=== PATIENT | female | born 1960 | race Caucasian/White ===

== ENCOUNTER → 2017-12-19 | Outpatient (CLI) | payer BC ==
[~2017-12-19] MED LIST: CALC600T9 PO; CETI10TA84 PO; LISI-461 PO; PRLSR20 PO
--- NOTE | 2017-12-19 09:15 | DIAGNOSTIC IMAGING REPORT ---
L ELBOW MIN 3 VIEWS ROUTINE CLINICAL HISTORY: ACUTE L MEDIAL EPECONDYLE PAIN/EPICONDYLITIS COMPARISON: None. DISCUSSION: The bones and joint spaces appear intact. There is no evidence of fracture, dislocation or bony disease. There is no evidence for soft tissue swelling. IMPRESSION: Negative study. The above report was generated using voice recognition software. It may contain grammatical, syntax or spelling errors. Electronically signed by: Anand Armstrong M.D. 12/19/2017 9:14 AM Dictated Date/Time: 12/19/2017 9:13 AM
[2017-12-19 09:33] LABS: BASO % 0.3 %; BASO ABS # 0.02 K/uL (0-0.2); EOS % 4.8 %; EOS ABS # 0.32 K/uL (0-0.5); HEMATOCRIT 39.3 % (37-47); HEMOGLOBIN 13.5 g/dL (12.0-16.0); IG# 0.02 K/uL (0.00-0.02); LYMPH ABS # 2.49 K/uL (1.2-3.4); MEAN CELL VOLUME 92.9 fL (80-100); MEAN CORPUSCULAR HEMOGLOBIN 31.9 pg (25-34); MEAN CORPUSCULAR HGB CONC 34.4 g/dl (32-36); MEAN PLATELET VOLUME 8.9 fL (7.4-10.4); MONO % 6.8 %; MONO ABS # 0.46 K/uL (0.11-0.59); NEUT % 50.8 %; NEUT ABS # 3.42 K/uL (1.4-6.5); PLATELET COUNT 380 K/uL (130-400); RED CELL DISTRIBUTION WIDTH CV 13.2 % (11.5-14.5); RED CELL DISTRIBUTION WIDTH SD 45.1 fL (36.4-46.3); WHITE BLOOD COUNT 6.73 K/uL (4.8-10.8)
[2017-12-19 10:06] LABS: ALBUMIN 3.7 gm/dl (3.4-5.0); ALT/SGPT 29 U/L (12-78); AST/SGOT 15 U/L (15-37); BLOOD UREA NITROGEN 17 mg/dl (7-18); CALCIUM 9.8 mg/dl (8.5-10.1); CARBON DIOXIDE 26 mmol/L (21-32); CHOLESTEROL 249 mg/dl (0-200); CREATININE 0.61 mg/dl (0.60-1.20); GLUCOSE 88 mg/dl (70-99); POTASSIUM 4.1 mmol/L (3.5-5.1); SODIUM 140 mmol/L (136-145)
[2017-12-19 10:14] LABS: ALKALINE PHOSPHATASE 111 U/L (45-117); LDL CHOLESTEROL CALCULATED 138 mg/dl; TOTAL PROTEIN 7.2 gm/dl (6.4-8.2)
[2017-12-22 15:53] LABS: ANA SCREEN TC 249X NEGATIVE (NEGATIVE)
== END | disposition home or self-care (01) ==
LOC: C.RAD 08:04
PROVIDERS: ATTEND Nurse Practitioner
DX: M77.02 Medial epicondylitis, left elbow (principal); E78.00 Pure hypercholesterolemia, unspecified; R53.83 Other fatigue; G89.29 Other chronic pain

== ENCOUNTER → 2018-01-22 | Outpatient (CLI) | payer BC ==
[~2018-01-22] MED LIST changes: +GADAVIST IV PRN
--- NOTE | 2018-01-22 19:22 | DIAGNOSTIC IMAGING REPORT ---
BRAIN COMBO CLINICAL HISTORY: 58 years-old Female presenting with NUMBNESS, VENEGAS, LEFT SIDE OF FACE. TECHNIQUE: Multisequence, multiplanar MR imaging of the brain was performed before and after the administration of intravenous contrast. IV contrast: 6.5 mL of Gadavist. COMPARISON: None. FINDINGS: Ventricles and sulci normal in size. Prominent perivascular spaces noted in the basal ganglia. Few subcortical and periventricular white matter T2/FLAIR hyperintensities, nonspecific. Lesions do not demonstrate enhancement or restricted diffusion. No mass effect or midline shift. No restricted diffusion to suggest acute ischemia. No hemorrhage. No extra-axial fluid collection. T2 skull base flow voids preserved. No abnormal parenchymal enhancement. Bone marrow signal intensity within the calvarium within normal limits. IMPRESSION: 1. No acute intracranial pathology. No abnormal enhancement. 2. Few foci of abnormal white matter signal intensity are nonspecific but may relate to chronic small vessel ischemic change. Electronically signed by: Satish Jacobs M.D. 01/22/2018 7:21 PM Dictated Date/Time: 01/22/2018 7:17 PM
--- NOTE | 2018-01-22 19:28 | DIAGNOSTIC IMAGING REPORT ---
MRA HEAD WITHOUT CONTRAST CLINICAL HISTORY: 58 years-old Female presenting with left facial numbness for 1-2 days, gait disturbance for 3 months intermittently. TECHNIQUE: MR angiography of the head was performed without the use of intravenous contrast using 3-D [id number] technique. 3-D volumetric and/or maximum intensity projection (MIP) images were subsequently reconstructed for review. IV contrast: None. COMPARISON: None. FINDINGS: Anterior circulation: Intracranial portions of the internal carotid arteries patent to the level of the termini. Hypoplastic A1 segment of the right anterior cerebral artery. Anterior and middle cerebral arteries otherwise patent. Anterior communicating artery patent. Posterior circulation: Codominant vertebral arteries. Intradural portions of the vertebral arteries patent. Posterior inferior cerebellar arteries patent. Basilar artery patent. Anterior inferior cerebellar arteries poorly visualized. Superior cerebellar and posterior cerebral arteries patent. Right posterior communicating artery hypoplastic or aplastic. Left posterior communicating artery patent. Prominent infundibulum at the origin of the left posterior communicating artery. IMPRESSION: 1. No significant stenosis, aneurysm, or focal vessel occlusion. Electronically signed by: Satish Jacobs M.D. 01/22/2018 7:27 PM Dictated Date/Time: 01/22/2018 7:22 PM
== END | disposition home or self-care (01) ==
LOC: C.MRI 18:03
PROVIDERS: ATTEND Nurse Practitioner
DX: R20.0 Anesthesia of skin (principal); R51 Headache

== ENCOUNTER 2020-04-28 09:36 | Inpatient (IN) ==
[2020-04-28] MEDS ORDERED: MoRPHine SULFATE 10 MG/ML CARP/VIAL IV STA (10:24)
[2020-04-28] MEDS ORDERED: SODIUM CHLORIDE 0.9% 1000ML 2,000 ML IV ONE (10:24)
[2020-04-28] MEDS ORDERED: ONDANSETRON INJ 2 MG/ML 2 ML VIAL IV STA ×2 (10:24→11:37)
--- NOTE | 2020-04-28 10:30 | Emergency Department Note ---
Impression & Plan Flank Pain, Pyelonephritis, Intractable nausea and vomiting ED Provider Note NAME: YAHIR ACEVEDO AGE: 60 SEX: F : 1960 ARRIVES VIA: Walk-In INFORMANT: Patient ED PROVIDER(S): Ifeanyi Kapoor DO CHIEF COMPLAINT: Left flank pain HPI: Patient is a 60-year-old female who presents the ER for severe left flank pain. She has been having persistent nausea and vomiting since midday yesterday. Patient had stone removal and stent placement by Dr. Broussard [facility] yesterday morning. She was discharged home. Since then she has not been able to eat or drink anything. Patient describes her pain as a 10 out of 10 left flank. She cannot keep anything down. She has been having persistent vomiting all morning. Admits to dysuria and urgency. Has some frequency. Previous abdominal surgeries include appendectomy, hysterectomy and cholecystectomy.No other exacerbating or remitting factors. ROS: See above HPI for pertinent positives & negatives. A total of 10 systems reviewed and were otherwise negative. PAST MEDICAL HISTORY:See Below PAST SURGICAL HISTORY:See Below FAMILY HISTORY:See Below SOCIAL HISTORY:See Below HOME MEDICATIONS:See Below ALLERGIES:See Below VITALS:See Below PHYSICAL EXAMINATION: GENERAL: Sitting up in bed, Alert, ill-appearing, intermittent vomiting EYE EXAM: normal conjunctiva. OROPHARYNX: mucous membranes are Dry NECK: supple, no nuchal rigidity, no adenopathy, non-tender LUNGS: Clear to auscultation. Normal chest wall mechanics HEART: no murmurs, S1 normal and S2 normal ABDOMEN: abdomen soft, non-tender, normo-active bowel sounds, no masses, no rebound or guarding. BACK: Back is symmetrical on inspection and there is no deformity, no midline tenderness, +CVA tenderness on the left SKIN: no rashes and no bruising UPPER EXTREMITIES: upper extremities are grossly normal. LOWER EXTREMITIES: No pitting edema. NEURO EXAM: Normal sensorium, cranial nerves II-XII grossly intact, normal speech, no gross weakness of arms, no gross weakness of legs. MEDICAL DECISION MAKING: Patient is a 60-year-old female who presents the ER for severe flank pain. Persistent nausea vomiting since yesterday. Had a stent placed by Dr. Broussard after removal of kidney stone yesterday and she remove the stent this morning. IV was status post orders obtained. Labs show leukocytosis 21,000. No signifi cant anemia. BMP with a potassium of 3.2. LFTs bilirubin was unremarkable. Lipase was normal. UA was clean. CT suggest pyelonephritis. There was air present but recent intervention. Patient was given IV antibiotics. Patient was given 2 L IV fluids. Multiple dose of IV narcotics. Patient was updated bedside. Discussed with the hospitalist admitted for further work-up. Triage Nursing notes reviewed. Prior medical records reviewed Vital Signs: reviewed and remarkable for HTN Differential diagnosis: Differential diagnoses includes but is not limited to gastritis, peptic ulcer disease, GERD, gallbladder disease, pancreatitis, small bowel obstruction, acute coronary syndrome, pericarditis, ischemic bowel, irritable bowel disease, ir ritable bowel syndrome, appendicitis, diverticulitis, malignancy, hernia, urinary tract infection, torsion, perforation, trauma, infectious. ER treatment provided: See below Diagnostics interpreted by me: ECG: none Cardiac Monitoring: An order was placed for continuous cardiac monitoring. The monitor shows a rate of 85 with sinus rhythm. Laboratory studies: As stated above and show below. Imaging studies: CT abdomen pelvis suggest pyelonephritis Consultation(s): Discussed with hospitalist for admission. ED COURSE: Procedures: none Critical Care: None Past Med/Surg History Social History Preferred Language: Tajik Communication Ability: Effective Instrument Designer Required: No Beliefs That Will Affect Care: None marital status: Current Living Situation: Spouse and Family Current Living Situation Comment: daughter and son in law and grandson current occupational status: employed current occupation: nurse Feels Safe at Home: Yes Smoking Status: Current every day smoker Tobacco Type: cigarettes ; Cigarettes Per Day: 10 ; Second Hand Exposure: Yes ; Hx Alcohol Use: No Hx Substance Use: No Allergies Allergies Allergy/AdvReac Type Severity Reaction Status Date / Time bupropion Allergy Mild Rash, hives Verified 04/28/20 10:39 iodine Allergy Unknown hives Verified 04/28/20 10:39 levofloxacin [From Levaquin] Allergy hives Verified 04/28/20 10:39 Home Meds Home Medications Medication Instructions Recorded Confirmed atorvastatin 20 mg tablet 20 mg PO QAM 12/08/19 04/28/20 lisinopril 40 mg tablet 40 mg PO DAILY 12/08/19 04/28/20 cetirizine [Zyrtec] 10 mg PO DAILY 03/28/20 04/28/20 omeprazole 20 mg PO DAILY PRN 03/28/20 04/28/20 Previous Rx's Medication Instructions Recorded ondansetron HCl 4 mg tablet 4 mg PO Q8H PRN #14 tab 04/24/20 sulfamethoxazole-trimethoprim 1 tab PO BID #6 tab 04/27/20 [Bactrim DS] Results & Data (ED) Vital Signs Vital Signs - 24 hr 04/28/20 09:43 04/28/20 11:47 04/28/20 12:57 Temperature 36.9 C Temperature Source Oral Pulse Rate 94 H 76 Pulse Rate [Right Finger] 76 93 H Pulse Rhythm Regular Pulse Rhythm [Right Finger] Regular Regular Pulse Strength [Right Finger] Normal Normal Respiratory Rate 18 28 H 24 Respiratory Effort / Characteristics Non-Labored Spontaneous Non-Labored Spontaneous Non-Labored Spontaneous Respiratory Depth Normal Normal Normal Respiratory Pattern Regular Regular Regular Blood Pressure 151/85 H Blood Pressure [Right Arm] 145/88 H Blood Pressure Mean 107 Blood Pressure Mean [Right Arm] 107 Blood Pressure Position Sitting Blood Pressure Position [Right Arm] Lying Pulse Oximetry 99 97 96 Oxygen Delivery Method Room Air Room Air Room Air Sepsis Recent Fever Within 48 Hours No Sepsis New/Unexplained Change in Mental Status No Sepsis Action Taken by Nursing No Action Required Laboratory Data Result diagrams: 04/28/20 11:09 04/28/20 11:09 Lab Results 04/28/20 04/28/20 04/28/20 Range/Units 11:09 11:09 13:01 WBC 21.89 H (4.8-10.8) K/uL RBC 4.62 (4.2-5.4) M/uL Hgb 14.7 (12.0-16.0) g/dL Hct 43.1 (37-47) % MCV 93.3 (80-100) fL MCH 31.8 (25-34) pg MCHC 34.1 (32-36) g/dL RDW Std Deviation 46.1 (36.4-46.3) fL RDW Coeff of Adi 13.6 (11.5-14.5) % Plt Count 421 H (130-400) K/uL MPV 9.0 (7.4-10.4) fL Immature Gran % (Auto) 0.4 % Neut % (Auto) 88.0 % Lymph % (Auto) 6.1 % [place] % (Auto) 5.4 % Eos % (Auto) 0.0 % Baso % (Auto) 0.1 % Neut # (Auto) 19.26 H (1.4-6.5) K/uL Lymph # (Auto) 1.33 (1.2-3.4) K/uL Victoria # (Auto) 1.18 H (0.11-0.59) K/uL Eos # (Auto) 0.01 (0-0.5) K/uL Baso # (Auto) 0.02 (0-0.2) K/uL Immature Gran # (Auto) 0.09 H (0.00-0.02) K/uL Sodium 143 (136-145) mmol/L Potassium 3.2 L (3.5-5.1) mmol/L Chloride 111 H (98-107) mmol/L Carbon Dioxide 23 (21-32) mmol/L Anion Gap 9.0 (3-11) BUN 18 (7-18) mg/dl Creatinine 0.97 (0.6-1.2) mg/dl Est Cr Clr Drug Dosing 52.3 ml/min Est GFR ( Amer) 74.6 Est GFR (Non-Af Amer) 64.4 BUN/Creatinine Ratio 18.4 (10-20) Glucose 129 H (70-99) mg/dl Calcium 9.6 (8.5-10.1) mg/dl Total Bilirubin 0.4 (0.2-1) mg/dl AST 26 (15-37) U/L ALT 45 (12-78) U/L Alkaline Phosphatase 121 H (45-117) U/L Total Protein 7.8 (6.4-8.2) gm/dl Albumin 3.9 (3.4-5.0) gm/dl Globulin 3.9 (2.5-4.0) gm/dl Albumin/Globulin Ratio 1.0 (0.9-2) Lipase 79 (73-393) U/L Specimen Hemolysis Urine Color [place] Urine Appearance Clear (Clear) Urine pH 8.0 H (4.5-7.5) Ur Specific [place] 1.012 (1.000-1.030) Urine Protein Negative (Negative) Urine Glucose (UA) Negative (Negative) Urine Ketones Trace H (Negative) Urine Blood 3+ H (Negative) Urine Nitrite Negative (Negative) Urine Bilirubin Negative (Negative) Urine Urobilinogen Negative (Negative) Ur Leukocyte Esterase Negative (Negative) Urine WBC (Auto) 1-5 (0-5) /hpf Urine RBC (Auto) >30 H (0-4) /hpf U Hyaline Cast (Auto) 0 (0-5) /lpf U Epithel Cells (Auto) 10-20 H (0-5) /lpf Urine Bacteria (Auto) Negative (Negative) Administered Medications Discontinued Medications Hydromorphone HCl (Dilaudid) 1 mg IV NOW STA Stop: 04/28/20 11:38 Last Admin: 04/28/20 11:41 Dose: 1 mg Documented by: [id number] Hydromorphone HCl (Dilaudid) 0.5 mg IV NOW STA Stop: 04/28/20 13:21 Last Admin: 04/28/20 13:32 Dose: 0.5 mg Documented by: [id number] Sodium Chloride (Nss 1000ml) 2,000 mls @ 999 mls/hr IV .Q2H1M ONE Stop: 04/28/20 12:24 Last Infusion: 04/28/20 13:06 Dose: 0 mls/hr Documented by: [id number] Admin: 04/28/20 11:06 Dose: 999 mls/hr Documented by: [id number] Ceftriaxone Sodium (Rocephin) 1,000 mg in 50 mls @ 100 mls/hr IV NOW STA Stop: 04/28/20 13:26 Last Admin: 04/28/20 13:27 Dose: Not Given Documented by: [id number] Piperacillin Sod/Tazobactam Sod (Zosyn) 4.5 gm in 120 mls @ 240 mls/hr IV NOW STA Stop: 04/28/20 13:57 Last Infusion: 04/28/20 16:58 Dose: 0 mls/hr Documented by: [id number] Admin: 04/28/20 14:07 Dose: 240 mls/hr Documented by: [id number] Promethazine HCl (Phenergan) 12.5 mg in 50.5 mls @ 202 mls/hr IV NOW STA Stop: 04/28/20 14:25 Last Infusion: 04/28/20 16:57 Dose: 0 mls/hr Documented by: [id number] Admin: 04/28/20 15:35 Dose: 202 mls/hr Documented by: [id number] Morphine Sulfate (Morphine Sulfate) 6 mg IV NOW STA Stop: 04/28/20 10:25 Last Admin: 04/28/20 10:49 Dose: Not Given Documented by: [id number] Morphine Sulfate (Morphine Sulfate) Confirm Administered Dose 2 mg .ROUTE .STK- MED ONE Stop: 04/28/20 10:47 Last Admin: 04/28/20 11:05 Dose: 2 mg Documented by: [id number] Morphine Sulfate (Morphine Sulfate) Confirm Administered Dose 4 mg .ROUTE .STK- MED ONE Stop: 04/28/20 10:48 Last Admin: 04/28/20 11:01 Dose: 4 mg Documented by: [id number] Ondansetron HCl (Zofran) 4 mg IV NOW STA Stop: 04/28/20 10:25 Last Admin: 04/28/20 11:01 Dose: 4 mg Documented by: [id number] Ondansetron HCl (Zofran) 4 mg IV NOW STA Stop: 04/28/20 11:38 Last Admin: 04/28/20 11:41 Dose: 4 mg Documented by: [id number] Discharge Plan Visit Data *Final* Discharge Date/Time: 04/28/20 15:46 Chief Complaint: Flank Pain Stated Complaint: THROWING UP ALL DAY AFTER STONE REMOVAL ED Provider: Ifeanyi Kapoor Discharge Problem: Flank Pain, Pyelonephritis, Intractable nausea and vomiting Patient Disposition: Admitted As Inpatient Discharge Instructions Interventions: ED Discharge Assessment Last Done: 04/28/20 15:46
[2020-04-28] MEDS ORDERED: MoRPHine SULFATE 2 MG/ML CARP ONE (10:46)
[2020-04-28] MEDS ORDERED: MoRPHine SULFATE 4 MG/ML 1 ML CARP\\VIAL ONE (10:47)
--- NOTE | 2020-04-28 10:58 | XRay Report ---
XR chest 1V portable CLINICAL HISTORY: vomiting nausea COMPARISON STUDY: 03/28/2020 FINDINGS: The bones soft tissues and hemidiaphragms are normal. The cardiomediastinal silhouette is n ormal. The lungs are clear. The pulmonary vasculature is normal. IMPRESSION: Negative chest. ACT 112: Negative or not required by law. The above report was generated using voice recognition software. It may contain grammatical, syntax or spelling errors. Electronically signed by: Anand Armstrong M.D. 04/28/2020 10:56 AM
[2020-04-28 11:17] LABS: Basophils # (auto) 0.02 K/uL (0-0.2); Basophils % (auto) 0.1 %; Eosinophils # (auto) 0.01 K/uL (0-0.5); Hematocrit (blood only) 43.1 % (37-47); Hemoglobin 14.7 g/dL (12.0-16.0); Immature Granulocytes # (auto) 0.09 K/uL (0.00-0.02); Immature Granulocytes % (auto) 0.4 %; Lymphocytes # (auto) 1.33 K/uL (1.2-3.4); Lymphocytes % (auto) 6.1 %; Mean Corpuscular Hemoglobin 31.8 pg (25-34); Mean Corpuscular Hgb Conc 34.1 g/dL (32-36); Mean Corpuscular Volume 93.3 fL (80-100); Monocytes # (auto) 1.18 K/uL (0.11-0.59); Monocytes % (auto) 5.4 %; Neutrophils # (auto) 19.26 K/uL (1.4-6.5); Platelet Count 421 K/uL (130-400); RDW Coefficient of Variation 13.6 % (11.5-14.5); RDW Standard Deviation 46.1 fL (36.4-46.3); Red Blood Count 4.62 M/uL (4.2-5.4); White Blood Count 21.89 K/uL (4.8-10.8)
[2020-04-28 11:36] LABS: Albumin Level 3.9 gm/dl (3.4-5.0); BUN Creatinine Ratio 18.4 (10-20); Calcium 9.6 mg/dl (8.5-10.1); Creatinine Clr Calc Pharmacy 52.3 ml/min; Est GFR (African American) 74.6; Est GFR (Non-African American) 64.4; Potassium 3.2 mmol/L (3.5-5.1)
[2020-04-28] MEDS ORDERED: HYDROmorphone INJ 1 MG/ML SYRINGE IV STA (11:37)
[2020-04-28 11:40] LABS: Bilirubin,Total 0.4 mg/dl (0.2-1); Globulin 3.9 gm/dl (2.5-4.0); Total Protein 7.8 gm/dl (6.4-8.2)
--- NOTE | 2020-04-28 12:44 | CT Scan Report ---
CT abd pelvis wo con CT DOSE: 317.80 mGy.cm HISTORY: severe l flank pain w/ recent stent TECHNIQUE: Multiaxial CT images of the abdomen and pelvis were performed without contrast. A dose lo wering technique was utilized adhering to the principles of ALARA. COMPARISON STUDY: 03/12/2020 FINDINGS: interval fragmentation of the calcification lower pole left kidney. Mild left hydroureteronephrosis. Moderate perirenal infiltrative change. Left kidney is somewhat charly atous compared to the prior study. Bladder is midline. There is a trace amount of air within the bladder presumably from a prior cathete rization procedure. The bowel pattern is nonobstructive. All remaining components of the study are unremarkable. IMPRESSION: 1. Findings consistent with left renal pyelonephritis. 2. Interval fragmentation of the calcification previously noted lower pole left kidney. 3. Trace air within left renal collecting system and bladder possibly from a recent catheterization p rocedure, although also potentially related to pyelonephritis. ACT 112: Negative or not required by law. The above report was generated using voice recognition software. It may contain grammatical, syntax or spelling errors. Electronically signed by: Anand Armstrong M.D. 04/28/2020 12:42 PM
[2020-04-28] MEDS ORDERED: cefTRIAXone SODIUM 1,000 MG/50 ML BAG IV STA (12:57)
[2020-04-28 13:16] LABS: Appearance Urine Clear (Clear); Bacteria Urine Automated Negative (Negative); Bilirubin Urine Negative (Negative); Blood Urine 3+ (Negative); Cast Urine Automated 0 /lpf (0-5); Color Urine Orange; Glucose Urine UA Negative (Negative); Ketones Urine Trace (Negative); Leukocyte Esterase Urine Negative (Negative); Nitrite Urine Negative (Negative); Protein Urine Negative (Negative); RBC Urine Automated >30 /hpf (0-4); Specific Gravity Urine 1.012 (1.000-1.030); Urobilinogen Urine Negative (Negative)
[2020-04-28] MEDS ORDERED: HYDROmorphone INJ 0.5 MG/0.5 ML SYR IV STA (13:20)
[2020-04-28] MEDS ORDERED: PIPERACILL/TAZOBAC CONSULT ACTIVE PRN (13:23)
[2020-04-28] MEDS ORDERED: PIPERACILLIN/TAZOBACTAM 4.5 GM/120 ML BAG IV STA (13:28)
[2020-04-28] MEDS ORDERED: PROMETHAZINE 12.5 MG/50.5 ML BAG IV STA (14:11)
--- NOTE | 2020-04-28 14:44 | History & Physical Report ---
Date of Service April 28, 2020 Assessment & Plan (1) Sepsis: POA, no end organ dysfunction Suspected source pyelonephritis Zosyn as below Follow up Blood and urine cultures Lactic acid 1.3 IV fluids, 0.5NSS + 40 meq KCl pending improvement in eating and drinking (2) Pyelonephritis: Flank pain with elevated WBC and CT changes although UA without bacteria Presumed resistant to fluoroquinolones given recent cystocope yesterday, patient only took one Bactrim and then vomiting last night so still could use this is sensitive Zosyn 4.5mg IV Now, then continue Q8H (renally dosed per pharmacy) Consult urology given mild hydronephrosis present with stones still present in ureter without stent present - discussed case with Dr Goff over the phone who will review, I do not believe an urgent intervention is needed unless she is to get clinically worse (3) Renal calculus, left: Fragmentation of prior stones. Likely to pass without intervention. Will defer starting tamsulosin to urology as unclear why she wasn't on this prior to admission (4) Renal colic: vs. pain from renal inflammation Dilaudid 0.5mg Q2H IV PRN (5) Intractable nausea and vomiting: Ondansetron first line (although she reports this doesn't work well) Phenergan 12.5mg IV Q6H PRN second line (can increase to 25mg if still nauseous) (6) Hypertension: Continue her usual lisinopril as long as BP maintaining in AM (7) Hyperlipidemia: Continue atorvastatin 20 mg PO daily (8) GERD (gastroesophageal reflux disease): Continue omeprazole 20mg PO daily (9) DVT prophylaxis: Low risk. SCDs alone. Admission and Anticipated Discharge Date Admission Date: 04/27/2020 History of Present Illness Chief Complaint: Pyelonephritis, sepsis, left flank pain Primary Care Provider: Aziza Robles Jeni Wilson is a 60 year old female who presents to the ER with left sided flank pain, nausea, vomiting and fever that gradually came on since last night. Yesterday she had cystoscopy, left ureteroscopy and left stent insertion performed showing small submillimeter stone fragments at the UPJ. She felt ok right after the operation. Routine antibiotics given during cystoscopy noted in operation note, which I suspect was ciprofloxacin. She was given Bactrim in addition post operatively but only took one pill last night and vomited soon afterwards. Apparently she was told that to go to the urology office today and the stent would be removed therefore with all the pain, nausea and vomiting she was having overnight she decided to remove it herself this morning. She has an extensive history of kidney stones with this current episode being ongoing since February with prior ESWL in March. She currently has severe 8/10 left flank pain radiating to suprapubic area improved from 10/10 pain when she first came to the ER. Associated dysuria. In the ER, repeat CT A/P showed findings consistent with left renal pyelonephritis, interval fragmentation of the calcification previously noted lower pole left kidney and trace air within the left renal collecting system and bladder, mild left hydronephrosis. She is currently afebrile but with tachypnea, tachycardia and elevated WBC consistent with sepsis. Urine micro did not show bacteria. Allergies Allergy/AdvReac Type Severity Reaction Status Date / Time bupropion Allergy Mild Rash, hives Verified 04/28/20 10:39 iodine Allergy Unknown hives Verified 04/28/20 10:39 levofloxacin [From Levaquin] Allergy hives Verified 04/28/20 10:39 Home Medications Home Medications Medication Instructions Recorded Confirmed Type atorvastatin 20 mg tablet 20 mg PO QAM 12/08/19 04/28/20 History lisinopril 40 mg tablet 40 mg PO DAILY 12/08/19 04/28/20 History cetirizine [Zyrtec] 10 mg PO DAILY 03/28/20 04/28/20 History omeprazole 20 mg PO DAILY PRN 03/28/20 04/28/20 History ondansetron HCl 4 mg tablet 4 mg PO Q8H PRN #14 tab 04/24/20 04/28/20 Rx sulfamethoxazole-trimethoprim 1 tab PO BID #6 tab 04/27/20 04/28/20 Rx [Bactrim DS] Past Med/Surg History Medical History GERD (gastroesophageal reflux disease) OTC prn Hyperlipidemia Hypertension Kidney stones Osteoarthritis Surgical History History of bilateral tubal ligation History of cystoscopy laser lithotripsy History of lithotripsy ESWL Previous back surgery lumbar S/P appendectomy S/P cholecystectomy S/P hysterectomy laparoscopic Family History Father Cancer Leukemia Grandfather (Maternal) Cancer Mother Hypertension Family/Other Kidney stones Social History Preferred Language: Mauritanian Communication Ability: Effective Interceptor Operator Required: No Beliefs That Will Affect Care: None marital status: Current Living Situation: Spouse Current Living Situation Comment: daughter and son in law and grandson current occupational status: employed current occupation: nurse Other Information That Helps Us Care for You: No Feels Safe at Home: Yes Smoking Status: Current every day smoker Tobacco Type: cigarettes ; Cigarettes Per Day: 20 ; Second Hand Exposure: Yes ; Hx Alcohol Use: No Hx Substance Use: No Review of Systems Review of Systems: All systems reviewed & are unremarkable except as noted in HPI & below Physical Exam Constitutional: well developed, well nourished, + acute distress (left flank pain) and + ill appearing Eyes: + anicteric sclerae; normal pupil size ENMT: Ears: no external ear abnormality Nose: no external nose abnormality Mouth: + dry oral mucous membranes Neck: trachea midline, no thyromegaly Respiratory: normal respiratory effort, lungs clear to auscultation Cardiovascular: Rate/Rhythm: regular rhythm and + tachycardic Heart Sounds: no murmur Vessels: radial pulses present; no JVD Extremities: normal capillary refill; no calf tenderness and no pedal edema Gastrointestinal (Abdomen): Inspection/Auscultation: abdomen normal to inspection and normal bowel sounds; abdomen not distended Percussion/Palpation: + abdomen tender (left sided) and abdomen soft; no guarding and abdomen not rigid Musculoskeletal: no cyanosis or clubbing, extremities motor strength 5/5 Skin: no rashes, warm and dry Neurologic: moves all extremities and awake; not confused Psychiatric: Orientation: alert and oriented x 3 Genitourinary: + CVA tenderness (left sided) Results & Data Results & Data ([facility]) Vital Signs (Past 12 Hours) Vital Signs Temp Pulse Pulse Resp BP BP Pulse Ox 04/28/20 14:09 89 22 142/80 H 96 04/28/20 12:57 93 H 24 145/88 H 96 04/28/20 11:47 76 76 28 H 97 04/28/20 09:43 36.9 C 94 H 18 151/[address] abd pelvis wo con IMPRESSION: 1. Findings consistent with left renal pyelonephritis. 2. Interval fragmentation of the calcification previously noted lower pole left kidney. 3. Trace air within left renal collecting system and bladder possibly from a recent catheterization procedure, although also potentially related to pyelonephritis. ECG Indication: chest pain Rate (beats per minute): 89 Rhythm: normal sinus Findings: + T-wave inversion (inferior, new from prior) Comparison ECG Date: from (May 13, 2001) Change: the following changes noted (possible inferior infarct present) Code Status & VTE Plan Code Status Full VTE Prophylaxis Plan VTE Prophylaxis will be ordered: Yes Reason for no VTE drug order: Treatment not indicated PG Care Time/CCT Total # of Minutes Spent Total Time Spent with Patient: Total time spent is greater than 50% in coordination of care (as documented) at patient's floor/unit and/or counseling patient: Coding Level of Care Code 10192 Initial Inpt Care Lvl 3 Diagnoses Sepsis A41.9 Sepsis acute organ dysfunction status: without acute organ dysfunction Sepsis type: sepsis due to unspecified organism Pyelonephritis N12 Renal calculus, left N20.0 Renal colic N23 Intractable nausea and vomiting R11.2 Hypertension I10 Hyperlipidemia E78.5 GERD (gastroesophageal reflux disease) K21.9 DVT prophylaxis Z29.9 (1) Sepsis Sepsis acute organ dysfunction status: without acute organ dysfunction Sepsis type: sepsis due to unspecified organism Qualified Code(s): A41.9 - Sepsis, unspecified organism
[2020-04-28] MEDS ORDERED: PROMETHAZINE HCL 12.5 MG in SODIUM CHLORIDE 0.9% 50 ML IV PRN (16:57)
[2020-04-28] MEDS ORDERED: PANTOprazole 40 MG TAB PO PRN (16:57)
[2020-04-28] MEDS: HYDROmorphone INJ 0.5 MG/0.5 ML SYR IV PRN ×2 (17:31→20:08)
[2020-04-28] MEDS: PIPERACILLIN/TAZOBACTAM 3.375 GM in DEXTROSE 5% 100 ML IV SCH (18:15)
[2020-04-28] MEDS ORDERED: LACTATED RINGER'S 1,000 ML IV SCH (19:00)
[2020-04-28] MEDS: POTASSIUM CHLORIDE 40 MEQ in SODIUM CHLORIDE 0.45 % 1,000 ML IV SCH (19:55)
[2020-04-29] MEDS: HYDROmorphone INJ 0.5 MG/0.5 ML SYR IV PRN ×6 (00:29→12:57)
[2020-04-29] MEDS: PIPERACILLIN/TAZOBACTAM 3.375 GM in DEXTROSE 5% 100 ML IV SCH ×3 (02:24→18:53)
[2020-04-29] MEDS: POTASSIUM CHLORIDE 40 MEQ in SODIUM CHLORIDE 0.45 % 1,000 ML IV SCH (04:41)
[2020-04-29 07:39] LABS: Basophils # (auto) 0.02 K/uL (0-0.2); Basophils % (auto) 0.2 %; Eosinophils # (auto) 0.06 K/uL (0-0.5); Eosinophils % (auto) 0.5 %; Hematocrit (blood only) 37.2 % (37-47); Hemoglobin 12.3 g/dL (12.0-16.0); Immature Granulocytes # (auto) 0.03 K/uL (0.00-0.02); Immature Granulocytes % (auto) 0.2 %; Lymphocytes # (auto) 1.74 K/uL (1.2-3.4); Lymphocytes % (auto) 13.6 %; Mean Corpuscular Hemoglobin 31.5 pg (25-34); Mean Corpuscular Hgb Conc 33.1 g/dL (32-36); Mean Corpuscular Volume 95.4 fL (80-100); Mean Platelet Volume 9.3 fL (7.4-10.4); Monocytes # (auto) 1.33 K/uL (0.11-0.59); Monocytes % (auto) 10.4 %; Neutrophils # (auto) 9.65 K/uL (1.4-6.5); Neutrophils % (auto) 75.1 %; Platelet Count 320 K/uL (130-400); RDW Standard Deviation 48.2 fL (36.4-46.3); White Blood Count 12.83 K/uL (4.8-10.8)
[2020-04-29 08:09] LABS: Calcium 8.6 mg/dl (8.5-10.1); Creatinine Clr Calc Pharmacy 48.6 ml/min; Est GFR (African American) 61.4; Potassium 3.6 mmol/L (3.5-5.1)
[2020-04-29] MEDS ORDERED: ondansetron HCL 8 MG in DEXTROSE 5% 50 ML IV PRN (08:11)
[2020-04-29] MEDS: ATORVASTATIN 20 MG TAB PO SCH (09:31)
[2020-04-29] MEDS: ACETAMINOPHEN 325 MG TAB PO SCH ×2 (09:31→11:45)
[2020-04-29] MEDS: lisinopriL 40 MG TAB PO SCH (09:31)
[2020-04-29] MEDS: CETIRIZINE HCL 10 MG TABLET PO SCH (09:31)
[2020-04-29] MEDS ORDERED: KETOROLAC 30 MG/ML VIAL IV ONE (14:30)
[2020-04-29] MEDS ORDERED: PROMETHAZINE HCL 25 MG in SODIUM CHLORIDE 0.9% 50 ML IV PRN (14:34)
[2020-04-29] MEDS ORDERED: ACETAMINOPHEN 1,000 MG/100 ML VIAL IV ONE (14:45)
[2020-04-29] MEDS: SODIUM CHLORIDE 0.45 % 1,000 ML IV SCH ×2 (14:51→21:45)
--- NOTE | 2020-04-29 14:56 | Urology Consultation ---
Date of Consultation April 29, 2020 Assessment & Plan (1) Sepsis: Patient on broad-spectrum antibiotics. Is undergoing supportive care. Patient is dealing with acute illness possibly pyelonephritis with sepsis after stone treatment with self removal of tethered stent the next morning after the procedure. Patient consistently states that her pain and nausea are not controlled. Patient is overall very defensive and hostile at times related to acute illness. Did discuss multiple options for management of discomfort as well as nausea. Did discuss that if patient is experiencing considerable pain coming from the kidney that by mechanism of action medication such as Toradol would be excellent options. Patient is insistent that that will do no help though she is willing to try. Discussed other options including tamsulosin, other nonnarcotic options, antispasmodics, and medications for nausea. Patient was very guarded during exam which limited the ability to determine the severity of her discomfort and issues however patient prior to examination was sitting comfortably with family. Agree with plans for supportive care. Patient will likely need 7 to 10-day course of antibiotics after once able to de-escalate based on cultures. Based on imaging no significant development of hydronephrosis. Will need to monitor to see if this worsens or increases over time. No visible stones within the ureter on imaging. All imaging was reviewed interpreted by myself. Patient's v itals are currently stable with no tachycardia. Patient is currently also afebrile. Discussed need to await full culture and sensitivity results as well as determine medications that can be taken orally for home prior to discharge patient. Patient is very motivated to go home per her and her family who are in the room. Continue with hydration and supportive care. Recommend attempt to transition to non-narcotic medication as much as possible for relief of symptomatic issues. Patient is still dealing with considerable nausea and vomiting. May need to trial other agents as well as allowing adequate time for resolution after acute illness. Plan to follow-up with Dr. Broussard in the office as already scheduled. Call if any further issues or concerns (2) Pyelonephritis: History of Present Illness Attending Physician: Julito Garcia MD History of Present Illness New consultation for patient with UTI/Pyelo, discomfort, and ill feelings. Patient had recent stone treatment with a tethered stent. After the procedure patient had considerable nausea possibly related to the anesthesia and the next morning due to the severity of the nausea which she related to the stent she self removed the tethered stent at approximately 7 AM. Shortly thereafter she developed worsening fevers chills and ill feelings and presented to the ER where she was found to be acutely ill with possible pyelonephritis/sepsis. Patient also developed sudden onset of pain into flank going down and radiating into groin and back in waves comes and goes. Can be severe at times. She is complaining of severe abdominal pain discomfort. She has severe spasms and discomfort. She has major pain with nausea and continues to feel like she is vomiting. She states that none of the medicine is helping her at all. Patient is very defensive and somewhat hostile during conversation. Is insistent that IV narcotics are the only thing that will relieve her pain. Is hesitant to trial any other medications which were offered. Discussed and reviewed patient's family history for any history of issues, infections, and disease. Also, discussed patient's medical/surgery history especially related to any history of urinary issues or stone disease. Patient was admitted and is undergoing observation with broad spectrum IV antibiotics. Allergies Allergy/AdvReac Type Severity Reaction Status Date / Time bupropion Allergy Mild Rash, hives Verified 04/28/20 10:39 iodine Allergy Unknown hives Verified 04/28/20 10:39 levofloxacin [From Levaquin] Allergy hives Verified 04/28/20 10:39 Home Medications Home Medications Medication Instructions Recorded Confirmed Type atorvastatin 20 mg tablet 20 mg PO QAM 12/08/19 04/28/20 History lisinopril 40 mg tablet 40 mg PO DAILY 12/08/19 04/28/20 History cetirizine [Zyrtec] 10 mg PO DAILY 03/28/20 04/28/20 History omeprazole 20 mg PO DAILY PRN 03/28/20 04/28/20 History ondansetron HCl 4 mg tablet 4 mg PO Q8H PRN #14 tab 04/24/20 04/28/20 Rx sulfamethoxazole-trimethoprim 1 tab PO BID #6 tab 04/27/20 04/28/20 Rx [Bactrim DS] Patient History Medical History GERD (gastroesophageal reflux disease) OTC prn Hyperlipidemia Hypertension Kidney stones Osteoarthritis Surgical History History of bilateral tubal ligation History of cystoscopy laser lithotripsy History of lithotripsy ESWL Previous back surgery lumbar S/P appendectomy S/P cholecystectomy S/P hysterectomy laparoscopic Family History Father Cancer Leukemia Grandfather (Maternal) Cancer Mother Hypertension Family/Other Kidney stones Social History Preferred Language: Albanian Communication Ability: Effective Tooth Clerk Required: No Beliefs That Will Affect Care: None marital status: Current Living Situation: Spouse Current Living Situation Comment: daughter and son in law and grandson current occupational status: employed current occupation: nurse Other Information That Helps Us Care for You: No Feels Safe at Home: Yes Smoking Status: Current every day smoker Tobacco Type: cigarettes ; Cigarettes Per Day: 20 ; Second Hand Exposure: Yes ; Hx Alcohol Use: No Hx Substance Use: No Review of Systems Review of Systems: All systems reviewed & are unremarkable except as noted in HPI & below Significant nausea Physical Exam Physical Exam: General: Alert in no acute distress. Chronic Medical issues. HEENT: Normocephalic. Inspection normal. Cranial Nerves 2-12 Grossly intact with some hearing issues. Normal inspection of face. Normal inspection of neck. Psychologic: Agitated/hostile affect. No obvious issues with memory. Respiratory: Nonlabored. No use of accessory muscles. No tachypnea or dyspnea. Cardiovascular: No tachycardia Skin: [place] and Dry. No rashes or visible lesions. Extremities/Lymphatics: Minor Mobility issues. Slow Gait. Abdomen: Moderately distended. No rebound. Guarding without palpation. Results & Data Vital Signs (Past 12 Hours) Vital Signs Temp Pulse Pulse Resp BP Pulse Ox 04/29/20 11:25 37.3 C 88 14 138/87 92 04/29/20 08:47 37.1 C 86 20 152/93 H 94 04/29/20 07:39 90 04/29/20 03:24 37.3 C 85 18 136/82 94 PG Care Time/CCT Total # of Minutes Spent Total Time Spent with Patient: Total time spent is greater than 50% in coordination of care (as documented) at patient's floor/unit and/or counseling patient: Coding Level of Care Code 32612 Inpt Consult Level 5 Diagnoses Sepsis A41.9 Sepsis type: sepsis due to unspecified organism Sepsis acute organ dysfunction status: without acute organ dysfunction Pyelonephritis N12 (1) Sepsis Sepsis type: sepsis due to unspecified organism Sepsis acute organ dysfunction status: without acute organ dysfunction Qualified Code(s): A41.9 - Sepsis, unspecified organism
[2020-04-29] MEDS ORDERED: OXYBUTYNIN CHLORIDE 5 MG TAB PO PRN (14:57)
--- NOTE | 2020-04-29 19:02 | Hospitalist Progress Note ---
Date of Service April 29, 2020 Assessment & Plan (1) Sepsis: Possible sepsis POA, no end organ dysfunction Questionable pyelonephritis given afebrile, negative urine culture and blood cultures negative to date. Elevated WBC may just be secondary to stent insertion the prior day. Continue Zosyn pending until blood culture at 48 hours Lactic acid 1.3 IV fluids 0.5NSS 150ml/hr (2) Pyelonephritis: Flank pain with elevated WBC and CT changes although urine culture negative As above continue Zosyn until blood cultures negative at 48 hours then can likely be discontinued Appreciate urology consult (3) Renal calculus, left: Fragmentation of prior stones. Likely to pass without intervention. Appreciate urology recommendations - start tamsulosin 0.4 mg at bedtime (4) Flank Pain: Currently with severe pain. Appears to be more pain from bladder, ureteral and renal inflammation rather than ureter peristalsis. Although description to Dr Goff is more renal colic therefore possibly would benefit from stent insertion again as per urology note the pain only started after stent removal by patient (this is not what she told me on admission but not rediscussed today). Dilaudid 0.5mg Q2H IV PRN, relatively ineffective overnight. Much more likely to have a response to Toradol 30 mg IV every 6 hourly as needed (5) Intractable nausea and vomiting: Ondansetron first line (although she reports this doesn't work well) Phenergan increased to 25 mg although her pain appears to be driving the nausea which should improve with Toradol (6) Hypertension: Continue lisinopril 40 mg p.o. daily (7) Hyperlipidemia: Continue atorvastatin 20 mg PO daily (8) GERD (gastroesophageal reflux disease): Continue omeprazole 20mg PO daily (9) DVT prophylaxis: Low risk. SCDs alone. Admission and Anticipated Discharge Date Admission Date: April 28, 2020 Subjective Patient was seen in the end of the bed in the morning and sleeping, therefore was not disturbed. She was reevaluated around 2:30 PM. Her daughter was at bedside and concerned that her mother was in a lot of pain. Patient was in significant distress from pain, severe 10/10, left flank, similar to admission. She was lying still rather than rolling around in bed. Dilaudid only working for around 10 minutes. Discussed prior diagnosis of chronic generalized pain - this was in her extremities and possibly thought to be MS although never confirmed on imaging or EMG/NCS tests, never had lumbar puncture. Currently this has not been a problem. Noted description in urology note that appears more renal colic with coming on in waves. She has always reported to me this is more constant cramping pain. Review of Systems Review of Systems: All systems reviewed & are unremarkable except as noted in HPI & below Physical Exam Constitutional: well developed, + acute distress (Continued left abdominal and left flank pain) and + ill appearing Eyes: + anicteric sclerae; normal pupil size ENMT: Ears: no external ear abnormality Nose: no external nose abnormality Mouth: + dry oral mucous membranes Gastrointestinal (Abdomen): Inspection/Auscultation: abdomen normal to inspection and normal bowel sounds; abdomen not distended Percussion/Palpation: + abdomen tender (Generalized abdominal and left flank), + guarding and abdomen soft; abdomen not rigid Skin: no rashes, warm and dry Neurologic: moves all extremities and awake; not confused Psychiatric: Orientation: alert and oriented x 3 Genitourinary: + CVA tenderness (left sided on light palpation) Results & Data Results & Data ([facility]) Vital Signs (Past 12 Hours) Vital Signs Temp Pulse Pulse Resp BP Pulse Ox 04/29/20 11:25 37.3 C 88 14 138/87 92 04/29/20 08:47 37.1 C 86 20 152/93 H 94 04/29/20 07:39 90 PG Care Time/CCT Total # of Minutes Spent Total Time Spent with Patient: Total time spent is greater than 50% in coordination of care (as documented) at patient's floor/unit and/or counseling patient: Coding Level of Care Code 27917 Subseq Hosp Care Lvl 2 Diagnoses Sepsis A41.9 Sepsis acute organ dysfunction status: without acute organ dysfunction Sepsis type: sepsis due to unspecified organism Pyelonephritis N12 Renal calculus, left N20.0 Flank Pain R10.9 Intractable nausea and vomiting R11.2 Hypertension I10 Hyperlipidemia E78.5 GERD (gastroesophageal reflux disease) K21.9 DVT prophylaxis Z29.9 (1) Sepsis Sepsis acute organ dysfunction status: without acute organ dysfunction Sepsis type: sepsis due to unspecified organism Qualified Code(s): A41.9 - Sepsis, unspecified organism
[2020-04-29] MEDS: TAMSULOSIN HCL 0.4 MG CAP PO SCH (21:44)
[2020-04-29] MEDS: KETOROLAC 30 MG/ML VIAL IV PRN (21:56)
[2020-04-30] MEDS: PIPERACILLIN/TAZOBACTAM 3.375 GM in DEXTROSE 5% 100 ML IV SCH ×3 (02:02→17:46)
[2020-04-30] MEDS: SODIUM CHLORIDE 0.45 % 1,000 ML IV SCH (04:07)
[2020-04-30 06:09] LABS: Hematocrit (blood only) 35.5 % (37-47); Hemoglobin 11.8 g/dL (12.0-16.0); Mean Corpuscular Hemoglobin 31.1 pg (25-34); Mean Corpuscular Hgb Conc 33.2 g/dL (32-36); Mean Corpuscular Volume 93.4 fL (80-100); Platelet Count 299 K/uL (130-400); RDW Coefficient of Variation 13.3 % (11.5-14.5); RDW Standard Deviation 45.2 fL (36.4-46.3); White Blood Count 10.36 K/uL (4.8-10.8)
[2020-04-30 06:44] LABS: BUN Creatinine Ratio 9.3 (10-20); Calcium 8.2 mg/dl (8.5-10.1); Creatinine Clr Calc Pharmacy 58.4 ml/min; Est GFR (African American) 76.5; Potassium 3.2 mmol/L (3.5-5.1)
[2020-04-30] MEDS: KETOROLAC 30 MG/ML VIAL IV PRN ×2 (06:49→15:32)
[2020-04-30] MEDS: CETIRIZINE HCL 10 MG TABLET PO SCH (07:46)
[2020-04-30] MEDS: lisinopriL 40 MG TAB PO SCH (07:46)
[2020-04-30] MEDS: ATORVASTATIN 20 MG TAB PO SCH (07:46)
[2020-04-30] MEDS: SODIUM CHLOR 0.45% + 20MEQ KCL 20 MEQ/1,000 ML BAG IV SCH ×2 (09:27→15:33)
[2020-04-30] MEDS: POTASSIUM CHLORIDE 20 MEQ TABCR PO SCH ×2 (09:28→21:11)
[2020-04-30] MEDS: OXYCODONE HCL IR 5 MG TAB (IMMEDIATE RELEASE) PO PRN ×2 (09:56→21:09)
--- NOTE | 2020-04-30 20:15 | Hospitalist Progress Note ---
Date of Service April 30, 2020 Assessment & Plan (1) Pyelonephritis: left-sided, based on CT at admission. urine cx was negative but this doesn't rule out infection. has been on zosyn since admission. blood cx's negative. d/c zosyn; transition to omnicef 300mg BID. plan 10-14 days of Rx in total. (2) Intractable nausea and vomitinnd to pyelonephritis +/- bactrim use after last admission +/- pain from her ureteral stent vs combo of factors. resolved. advance diet. (3) Hypertension: controlled cont MIREILLE (4) Renal calculus, left: s/p stent placement on left by Dr Broussard 04/27/20 patient removed stent at home on 04/28 appreciate Urology consultation while here - no intervention needed at this time treat infection as above (5) Hypokalemia: replace PO/IV repeat level in am (6) DVT prophylaxis: ambulation having hematuria from recent urological procedure and stone -- defer on chemical means for now updated at bedside today anticipate d/c tomorrow if stable overnight can d/c IV fluids later today if eating/drinking ok Admission and Anticipated Discharge Date Admission Date: April 28, 2020 Subjective patient feeling much better. nausea/emesis resolved. left flank pain improved. voiding ok; minimal hematuria. no anterior abdominal pain. no bowel movement since before her recent ureteral stenting. Review of Systems Constitutional: no fever and no chills Respiratory: no cough and no dyspnea Cardiovascular: no chest pain Physical Exam Constitutional: well developed and well nourished; no acute distress and no altered mental status ENMT: external ear and nose normal, oropharynx normal Respiratory: normal respiratory effort, lungs clear to auscultation Cardiovascular: Rate/Rhythm: regular rate and regular rhythm Heart Sounds: normal S1 and normal S2; no murmur Vessels: posterior tibial pulses present and dorsalis pedis pulses present; no JVD Extremities: no edema Gastrointestinal (Abdomen): normal bowel sounds, soft, nontender, no hepatosplenomegaly Musculoskeletal: mild flank tenderness on left only; neg on right Psychiatric: A+Ox3, euthymic affect Results & Data Results & Data ([facility]) Vital Signs (Past 12 Hours) Vital Signs Temp Pulse Resp BP Pulse Ox 04/30/20 15:16 37.3 C 78 18 128/82 96 Laboratory Results Laboratory Results - last 24 hr 04/30/20 04/30/20 04/30/20 05:41 05:41 05:41 WBC 10.36 RBC 3.80 L Hgb 11.8 L Hct 35.5 L MCV 93.4 MCH 31.1 MCHC 33.2 RDW Std Deviation 45.2 RDW Coeff of Adi 13.3 Plt Count 299 MPV 9.0 Sodium 145 Potassium 3.2 L Chloride 115 H Carbon Dioxide 25 Anion Gap 5.0 BUN 9 Creatinine 0.95 Est Cr Clr Drug Dosing 58.4 Est GFR ( Amer) 76.5 Est GFR (Non-Af Amer) 66.0 BUN/Creatinine Ratio 9.3 L Glucose 92 Calcium 8.2 L Magnesium 2.1 Diagnostic Findings blood/urine cx's neg to date PG Care Time/CCT Total # of Minutes Spent Total Time Spent with Patient: Total time spent is greater than 50% in coordination of care (as documented) at patient's floor/unit and/or counseling patient: Coding Level of Care Code 90383 Subseq Hosp Care Lvl 2 Diagnoses Pyelonephritis N12 Intractable nausea and vomiting R11.2 Hypertension I10 Renal calculus, left N20.0 Hypokalemia E87.6 DVT prophylaxis Z29.9
[2020-04-30] MEDS: TAMSULOSIN HCL 0.4 MG CAP PO SCH (20:58)
[2020-04-30] MEDS: CEFDINIR 300 MG CAP PO SCH (21:10)
[2020-04-30] MEDS: POLYETHYLENE (MIRALAX) 17 GM PACK PO SCH (21:10)
[2020-05-01 07:51] LABS: BUN Creatinine Ratio 11.2 (10-20); Calcium 8.4 mg/dl (8.5-10.1); Creatinine Clr Calc Pharmacy 54.4 ml/min; Est GFR (African American) 70.2; Est GFR (Non-African American) 60.6; Potassium 3.8 mmol/L (3.5-5.1)
[2020-05-01] MEDS ORDERED: LACTOBACILLUS ACIDOPHILUS (FLORANEX) TAB PO SCH (08:00)
[2020-05-01] MEDS: lisinopriL 40 MG TAB PO SCH (08:45)
[2020-05-01] MEDS: POTASSIUM CHLORIDE 20 MEQ TABCR PO SCH (08:45)
[2020-05-01] MEDS: CEFDINIR 300 MG CAP PO SCH (08:45)
[2020-05-01] MEDS: ATORVASTATIN 20 MG TAB PO SCH (08:45)
[2020-05-01] MEDS: CETIRIZINE HCL 10 MG TABLET PO SCH (08:45)
[2020-05-01] MEDS: POLYETHYLENE (MIRALAX) 17 GM PACK PO SCH (08:46)
--- NOTE | 2020-05-01 10:29 | Discharge Summary ---
Date of Service date of admission - April 28, 2020 date of discharge - May 01, 2020 Admission HPI Per Admitting Provider Jeni Wilson is a 60 year old female who presents to the ER with left sided flank pain, nausea, vomiting and fever that gradually came on since last night. Yesterday she had cystoscopy, left ureteroscopy and left stent insertion performed showing small submillimeter stone fragments at the [facility]. She felt ok right after the operation. Routine antibiotics given during cystoscopy noted in operation note, which I suspect was ciprofloxacin. She was given Bactrim in addition post operatively but only took one pill last night and vomited soon afterwards. Apparently she was told that to go to the urology office today and the stent would be removed therefore with all the pain, nausea and vomiting she was having overnight she decided to remove it herself this morning. She has an extensive history of kidney stones with this current episode being ongoing since February with prior ESWL in March. She currently has severe 8/10 left flank pain radiating to suprapubic area improved from 10/10 pain when she first came to the ER. Associated dysuria. In the ER, repeat CT A/P showed findings consistent with left renal pyelonephritis, interval fragmentation of the calcification previously noted lower pole left kidney and trace air within the left renal collecting system and bladder, mild left hydronephrosis. She is currently afebrile but with tachypnea, tachycardia and elevated WBC consistent with sepsis. Urine micro did not show bacteria. Principal Diagnosis left-sided pyelonephritis Discharge Exam Constitutional well developed and well nourished; no acute distress and no altered mental status ENMT external ear and nose normal, oropharynx normal Respiratory normal respiratory effort, lungs clear to auscultation Cardiovascular Rate/Rhythm: regular rate and regular rhythm Heart Sounds: normal S1 and normal S2; no murmur Vessels: posterior tibial pulses present and dorsalis pedis pulses present; no JVD Extremities: no edema Gastrointestinal (Abdomen) normal bowel sounds, soft, nontender, no hepatosplenomegaly Musculoskeletal mild left-sided flank tenderness to palpation Psychiatric A+Ox3, euthymic affect Discharge Data Allergies Allergy/AdvReac Type Severity Reaction Status Date / Time bupropion Allergy Mild Rash, hives Verified 04/28/20 10:39 iodine Allergy Unknown hives Verified 04/28/20 10:39 levofloxacin [From Levaquin] Allergy hives Verified 04/28/20 10:39 Consultations Consult Urology - Blake Zhang Ordered Studies CT abd pelvis wo con - IMPRESSION: 1. Findings consistent with left renal pyelonephritis. 2. Interval fragmentation of the calcification previously noted lower pole left kidney. 3. Trace air within left renal collecting system and bladder possibly from a recent catheterization procedure, although also potentially related to pyelonephritis. Hospital Course (1) Pyelonephritis: left-sided, based on CT at admission and clinical exam. urine cx was negative but this certainly doesn't rule out infection. Received zosyn during the admission then was transitioned to oral omnicef 300mg BID. She will complete 10 days of the omnicef. Blood cx's were negative during the stay. (2) Intractable nausea and vomitinnd to pyelonephritis +/- bactrim use after last admission +/- pain from her ureteral stent vs combo of factors. resolved. diet resumed, advanced, and was tolerated prior to discharge. (3) Hypertension: controlled with MIREILLE inhibitor. (4) Renal calculus, left: s/p stent placement on left by Dr Broussard 04/27/20 patient removed the stent herself at her home on 04/28 seen by [facility] while here - no urological intervention was needed during the stay treat infection as above recommended f/u with [facility] post-discharge (5) Hypokalemia: replaced and resolved prior to discharge Total Time Total Time Spent Total Time Spent (In Minutes): 25 Total Time Includes: Examination of the Patient, Discharge Planning and Medication Reconciliation Discharge Plan Discharge Items Patient Disposition: Home - Self-Care Reason For Visit: PYELONEPHRITIS of LEFT KIDNEY Discharge Diagnosis: 1. PYELONEPHRITIS OF LEFT KIDNEY (INFECTION OF LEFT KIDNEY) 2. RECENT LEFT-SIDED KIDNEY STONE WITH PLACEMENT OF STENT -- NOW WITH STENT REMOVED Activity: As commented below Activity Comment: GRADUALLY INCREASE ACTIVITIES OVER THE NEXT 7 DAYS Driving/Machine Use: NO DRIVING IF USING NARCOTIC PAIN MEDICATION Non-emergency contact: Primary Care Provider and Urologist Call non-emergency contact if: you have any medication questions, your symptoms worsen, your pain is not controlled, your pain is worsening and you have a fever Follow-up/Referrals: Roc Perera [Outside Practitioners] - 05/10/20 3:30 pm ([facility]---[phone] Follow up within 1-2 weekS. Your appointment is on May 10 at 3:30 pm. If you need to change this appointment, please call the office.) Aziza Robles [Primary Care Provider] - (SEE Dr Robles within 1 week ) Diet: Regular Addtl Attending Provider Instructions: You were admitted for nausea, vomiting, abdominal pain and left sided flank pain. This was in the setting of a recently placed ureteral stent for a left-sided kidney stone. Your stent was removed at home prior to admission. CAT scan of the abdomen showed probable kidney infection ("pyelonephritis") on the left side. You were started on IV antibiotics. Blood cultures remained negative while hospitalized. (no infection in the blood) Urine culture was negative but we are still suspicious you have had kidney infection on the left. Recommendations - 1. cefdinir antibiotic 300mg twice daily for 10 days. Start TONIGHT. 2. probiotics daily for 10 days. 3. hydrocodone/acetaminophen narcotic pain killer - 1 tab every 6 hours as nee ded for pain. * do not drive while taking this medication * do not drink alcohol while taking this medication * this medication will cause constipation * it can also cause sleepiness * this medication contains tylenol; do not take extra tylenol if you take this medication 4. take tamsulosin (flomax) once daily until urology tells you to stop 5. ondansetron 4mg every 6 hours as needed for nausea or vomiting 6. continue to strain your urine; collect any fragments in a cup; give to the urologist in [place] 7. plenty of fluids over the next few days 8. follow-up -- see separate section Return to [facility] if - * you have fever over 100.4 degrees * you have worsening abdominal pain, back pain or flank pain * you develop severe diarrhea * you have worsening blood in the urine * you have worsening abdominal pain or vomiting * any other concerns Pending Studies at Discharge: No Stand-Alone Forms: My [facility], Work/School Release (Inpt), Smoking Cessation Medications and DC Order Prescriptions: New cefdinir 300 mg Capsule 300 mg PO BID 10 Days Qty: 20 RF: 0 tamsulosin 0.4 mg Capsule 0.4 mg PO HS Qty: 30 RF: 0 Saccharomyces boulardii 250 mg capsule 250 mg PO DAILY 10 Days Qty: 10 RF: 0 hydrocodone-acetaminophen [[place]] 5-325 mg tablet 1 tab PO Q6H PRN (Reason: pain) Qty: 14 RF: 0 ondansetron 4 mg tablet,disintegrating 4 mg PO Q6H PRN (Reason: nausea and vomiting) Qty: 10 RF: 0 Continued atorvastatin 20 mg tablet 20 mg PO QAM RF: 0 lisinopril 40 mg tablet 40 mg PO DAILY RF: 0 cetirizine [Zyrtec] 10 mg Tablet 10 mg PO DAILY RF: 0 omeprazole 20 mg Tablet,Delayed Release (Dr/Ec) 20 mg PO DAILY PRN (Reason: Heartburn) RF: 0 Discontinued sulfamethoxazole-trimethoprim [Bactrim DS] 800-160 mg tablet 1 tab PO BID Qty: 6 RF: 0 Discharge Orders: Discharge Order (Routine); Ordered 05/01/20 Ordered By: Julito Bojorquez Admission Data Admit Date/Time: 04/28/20 13:17 Attending Provider: Julito Bojorquez Admit Provider: Julito Garcia Primary Care Provider: Aziza Robles Other Providers: Julito Garcia ; Laron Broussard Other Interventions: Discharge Summary Assessment (RN) Last Done: 05/01/20 10:47 DC Date/Time DO NOT enter until pt leaves facility: 05/01/20 11:50 Coding Level of Care Code D/C Day Management <30 mins Diagnoses Pyelonephritis N12 Intractable nausea and vomiting R11.2 Hypertension I10 Renal calculus, left N20.0 Hypokalemia E87.6
== END 2020-05-01 11:50 | disposition home or self-care (01) | DRG 659 ==
LOC: ED 09:36 → SUATTDRO 13:17 → 2E 13:17 → 2N 04-29 20:58